=== PATIENT | male | born 1995 | race Caucasian/White ===

== ENCOUNTER 2025-03-31 14:03 | Emergency (ER) | payer SELFPAY ==
[2025-03-31] VITALS (26 sets, daily range): BP systolic 96–120; BP diastolic 64–92; PULSE 69–107; TEMP 36.6; O2SAT 96–98; BMI 25.8
--- NOTE | 2025-03-31 14:52 | ECG_ITS ---
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 Measurements Intervals [place] Rate: 95 P: 61 RI: 134 QRS: 54 QRSD: 72 T: 66 QT: 336 QTc: 389 Interpretive Statements 1100 Sinus rhythm 1102 Sinus arrhythmia 9110 normal ECG No previous ECG available for comparison Electronically Signed On 03-31-2025 20:04:34 EDT by MARILYN RANDHAWA M.D.
--- NOTE | 2025-03-31 14:52 | XR_ITS ---
[address] [address] Patient Name: VANITA CAMPBELL MRN: [id number] date: 1995 Sex: M Assigned Patient Location: ER Current Patient Location: ER Accession/Order Number: [id number] Exam Date: 03/31/2025 15:12 Report Date: 03/31/2025 16:32 At the request of: ALANNAH MORRISON MD Procedure: XR chest 1V XR chest 1V 03/31/2025 3:17 PM SIGNS AND SYMPTOMS: Chest pain PROTOCOL: Frontal radiograph of the chest COMPARISON: None FINDINGS: The trachea is midline. The heart and mediastinal structures are within normal limits. The lung parenchyma is clear. The bony thorax is intact. There is a dextro convex curvature of the thoracic spine. XR/XR chest 1V IMPRESSION: No acute cardiopulmonary pathology. Impression dictated by: Shan Dwyer M.D. 03/31/2025 4:32 PM Dictation Location: [email or web address] Electronically authenticated by: [id number] Y Date: 03/31/2025 16:32
--- NOTE | 2025-03-31 14:53 | ED.GENADUL1 ---
HPI HPI - General Adult General Chief complaint: Chest Pain Stated complaint: ABDOMINAL AND BACK PAIN Time Seen by Provider: 03/31/25 14:44 Source: patient Mode of arrival: walk-in Limitations: no limitations History of Present Illness HPI narrative: 29-year-old male presented to the emergency department for chest pain. It is in the midline lower part of his sternum he has had at this time continuously for 2 days. He has been having this issue frequently for months. No trauma or fever. He recently cut back significantly on his alcohol consumption and has not had any for the last week or 2. He has cut back because he is starting to realize that it is not good for him. No abdominal pain or vomiting. Related Data Allergies Allergy/AdvReac Type Severity Reaction Status Date / Time No Known Drug Allergies Allergy Verified 03/31/25 14:26 Opioid HPI Opioid Management Most Recent Opioid Data: Last Pain Scale 8 Today, 15:17 Review of Systems ROS Narrative A ten point review of systems is negative except as noted above. PFSH PFSH Social History Little interest or pleasure in doing things: not at all Feeling down, depressed, or hopeless: not at all Exam Narrative Exam Narrative: Nurses note and vital signs reviewed and patient is not hypoxic. General: The patient appears well and in no apparent distress. Patient is resting comfortably on cart. Skin: Warm, dry, no pallor noted. There is no rash noted. Head: Normocephalic, atraumatic Eye: Normal conjunctiva, no drainage Ears, Nose, Mouth, and Throat: oral mucosa is moist. Nares patent. Cardiovascular: Regular Rate and Rhythm Respiratory: Patient is in no distress, no accessory muscle use, lungs are clear to auscultation, no wheezing, rales or rhonchi Back: non-tender, no CVA tenderness bilaterally to percussion. GI: Soft and nontender. No masses or distention Musculoskeletal: The patient has no evidence of calf tenderness, no pitting edema, symmetrical pulses noted bilaterally Neurological: A&O Psychiatric: Cooperative Constitutional Vital Signs, click to edit/add: Last Vital Signs Temp 98 F 03/31/25 14:27 Pulse 107 H 03/31/25 18:00 Resp 15 03/31/25 18:00 BP 110/86 03/31/25 17:00 Pulse Ox 98 03/31/25 14:50 Course Vital Signs Vital signs: Vital Signs Temperature 98 F 03/31/25 14:27 Pulse Rate 95 H 03/31/25 14:27 Respiratory Rate 16 03/31/25 14:27 Blood Pressure 120/92 H 03/31/25 14:27 Pulse Oximetry 98 03/31/25 14:27 Temperature 98 F 03/31/25 14:27 Pulse Rate 107 H 03/31/25 18:00 Respiratory Rate 15 03/31/25 18:00 Blood Pressure 110/86 03/31/25 17:00 Pulse Oximetry 98 03/31/25 14:50 Medical Decision Making MDM Narrative Medical decision making narrative: Blood work is essentially normal but gallbladder ultrasound shows thickened wall with a large stone in the lumen of the gallbladder. Common bile duct is normal. Initial intent was to transfer the patient to [facility] but they do not have any beds available. I have spoken to Dr. Cody at [facility] who accepts the patient and the patient is stable and agreeable for transfer. Differential Diagnosis Differential Diagnosis: GERD, colitis, constipation, gallbladder disease Lab Data Lab results reviewed: Yes I reviewed the patient's lab results Labs: Lab Results 03/31/25 Range/Units 15:01 WBC 11.1 H (4.0-11.0) 10^3/uL RBC 5.72 (4.70-6.10) 10^6/uL Hgb 18.3 H (14.0-18.0) g/dL Hct 53.5 (42.0-54.0) % MCV 93.5 (80.0-94.0) fL MCH 32.0 (25.9-34.0) pg MCHC 34.2 (29.9-35.2) g/dL RDW 13.8 (11.0-15.0) % Plt Count 245 (150-450) 10^3/uL MPV 8.7 L (9.5-13.5) fL Neut % (Auto) 70.9 (43.0-75.0) % Lymph % (Auto) 17.4 L (20.5-60.0) % Butts % (Auto) 6.8 (1.7-12.0) % Eos % (Auto) 4.2 (0.9-7.0) % Baso % (Auto) 0.5 (0.2-2.0) % Neut # (Auto) 7.9 H (1.4-6.5) 10^3/uL Lymph # (Auto) 1.9 (1.2-3.8) 10^3/uL Butts # (Auto) 0.8 (0.3-0.8) 10^3/uL Eos # (Auto) 0.5 (0.0-0.7) 10^3/uL Baso # (Auto) 0.1 (0.0-0.1) 10^3/uL Abs Immat Gran (auto) 0.02 (0.00-0.03) 10^3/uL Imm/Tot Granulo (auto) 0.2 (0.0-0.5) % Sodium 139 (136-145) mmol/L Potassium 4.2 (3.5-5.1) mmol/L Chloride 103 (98-107) mmol/L Carbon Dioxide 26.7 (21.0-32.0) mmol/L Anion Gap 13.5 BUN 13.0 (7.0-18.0) mg/dL Creatinine 1.05 (0.70-1.30) mg/dL Est GFR ( Amer) >60 (>=60 mL/min/1.73m^2) Est GFR (Non-Af Amer) >60 (>=60 mL/min/1.73m^2) BUN/Creatinine Ratio 12.4 Glucose 85 (74-106) mg/dL Calcium 9.4 (8.5-10.1) mg/dL Total Bilirubin 1.1 H (0.2-1.0) mg/dL Direct Bilirubin 0.2 (0.0-0.2) mg/dL AST 12 L (15-37) U/L ALT 30 (16-63) U/L Alkaline Phosphatase 107 (46-116) U/L Troponin I High Sens <4.0 L (4.0-76.1) pg/mL Total Protein 7.9 (6.4-8.2) g/dL Albumin 3.9 (3.4-5.0) g/dL Globulin 4.0 g/dL Albumin/Globulin Ratio 1.0 Amylase 61 (25-115) U/L Lipase 23.0 (16.0-77.0) U/L Imaging Data Gallbladder ultrasound: Radiologist's impression: ITS Impressions Chest X-Ray 03/31/25 14:52 IMPRESSION: No acute cardiopulmonary pathology. Impression dictated by: Shan Dwyer M.D. 03/31/2025 4:32 PM Dictation Location: [employer] Electronically authenticated by: [id number] Y Date: 03/31/2025 16:32 Upper Quadrant Ultrasound 03/31/25 15:51 IMPRESSION: There is a stone in the gallbladder lumen. There is gallbladder wall thickening measuring 5 mm in greatest thickness suspicious for acute cholecystitis. Impression dictated by: Shan Dwyer M.D. 03/31/2025 4:59 PM Dictation Location: [employer] Electronically authenticated by: [id number] Y Date: 03/31/2025 16:59 Discharge Plan Discharge Chief Complaint: Chest Pain Clinical Impression: Acute cholecystitis Patient Disposition: [facility] Time of Disposition Decision: 18:14 Discharge Location: [facility] Condition: Fair Mode of Transportation: EMS
[2025-03-31 15:07] LABS: Hematocrit 53.5 % (42.0-54.0); Hemoglobin 18.3 g/dL (14.0-18.0); Immature Granulocytes Abs Auto 0.02 10^3/uL (0.00-0.03); Immature Granulocytes Pct Auto 0.2 % (0.0-0.5); Lymphocytes Absolute Auto 1.9 10^3/uL (1.2-3.8); Mean Corpuscular HGB Conc 34.2 g/dL (29.9-35.2); Mean Corpuscular Hemoglobin 32.0 pg (25.9-34.0); Mean Corpuscular Volume 93.5 fL (80.0-94.0); Platelet Count 245 10^3/uL (150-450); Red Blood Count 5.72 10^6/uL (4.70-6.10); White Blood Count 11.1 10^3/uL (4.0-11.0)
[2025-03-31] MEDS: lidocaine HCL 15 ML, MAG HYDROX/ALUMINUM HYD/SIMETH 30 ML, HYOSCYAMINE SULFATE 0.25 MG PO (15:07)
[2025-03-31 15:38] LABS: Alanine Aminotransferase 30 U/L (16-63); Albumin Globulin Ratio 1.0; Albumin Level 3.9 g/dL (3.4-5.0); Alkaline Phosphatase 107 U/L (46-116); Anion Gap 13.5; Aspartate Amino Transferase 12 U/L (15-37); Blood Urea Nitrogen 13.0 mg/dL (7.0-18.0); Calcium 9.4 mg/dL (8.5-10.1); Carbon Dioxide 26.7 mmol/L (21.0-32.0); Chloride 103 mmol/L (98-107); Estimated GFR (African America >60 (>=60 mL/min/1.73m^2); Estimated GFR (Non-African Ame >60 (>=60 mL/min/1.73m^2); Globulin 4.0 g/dL; Glucose 85 mg/dL (74-106); Potassium 4.2 mmol/L (3.5-5.1); Sodium 139 mmol/L (136-145); Total Protein 7.9 g/dL (6.4-8.2)
[2025-03-31 15:41] LABS: Amylase 61 U/L (25-115); Lipase 23.0 U/L (16.0-77.0)
--- NOTE | 2025-03-31 15:51 | US_ITS ---
The [address] [address] Patient Name: VANITA CAMPBELL MRN: [id number] date: 1995 Sex: M Assigned Patient Location: ER Current Patient Location: ER Accession/Order Number: [id number] Exam Date: 03/31/2025 16:05 Report Date: 03/31/2025 16:59 At the request of: ALANNAH MORRISON MD Procedure: US right upper quadrant EXAMINATION TYPE: US right upper quadrant DATE OF EXAM ORDERED: 03/31/2025 4:45 PM HISTORY: Right upper quadrant pain, nausea COMPARISON: NONE TECHNIQUE: Realtime imaging limited to the right upper quadrant was performed. FINDINGS: There is an echogenic stone in the gallbladder lumen measuring up to 2.7 cm in greatest dimension. The gallbladder wall is thickened at 5 mm. The common bile duct is within normal limits at 3 mm. No intrahepatic or extrahepatic biliary dilatation is seen. The liver is normal in echo reflectivity. Hepatopedal flow is noted in portal vein. Partial visualization of the right kidney reveals no gross hydronephrosis. Partial visualization of the pancreas reveals no abnormality. US/US right upper quadrant IMPRESSION: There is a stone in the gallbladder lumen. There is gallbladder wall thickening measuring 5 mm in greatest thickness suspicious for acute cholecystitis. Impression dictated by: Shan Dwyer M.D. 03/31/2025 4:59 PM Dictation Location: [place] [address] Electronically authenticated by: [id number] Y Date: 03/31/2025 16:59
[2025-03-31] MEDS: PIPERACILLIN SODIUM/TAZOBACTAM 3.375 GM in 0.9 % SODIUM CHLORIDE 50 ML IV (18:00)
[2025-03-31] MEDS: MORPHINE SULFATE 4 MG/ML VIAL IV (18:16)
== END 2025-03-31 19:16 | disposition short-term general hospital (02) ==
PROVIDERS: Emergency Provider Emergency Medicine; PCP Internal Medicine
DX: K80.00 Calculus of gallbladder with acute cholecystitis without obstruction (principal)
CPT/HCPCS: 36415; 71045; 76705; 80048; 80076; 82150; 83690; 84484; 85025; 87040; 93005; 96365; 96375; 99285; J2270; J2543